=== PATIENT | female | born 1970 | race Caucasian/White ===

== ENCOUNTER 2016-07-11 11:31 | Outpatient (CLI) | payer BC | END 2016-07-11 11:52 | LOC: D.MAMMO 11:31 | DX: Z12.31 Encounter for screening mammogram for malignant neoplasm of breast (principal) ==

== ENCOUNTER → 2016-08-20 15:49 | Outpatient (CLI) | payer BC | END | disposition home or self-care (01) | LOC: D.MAMMO 08:30 | DX: R92.8 Other abnormal and inconclusive findings on diagnostic imaging of breast (principal) ==

== ENCOUNTER → 2018-04-22 23:39 | Outpatient (CLI) | payer BC | END | disposition home or self-care (01) | LOC: D.MAMMO 13:30 | PROVIDERS: ATTEND Emergency Medicine | DX: N64.4 Mastodynia (principal) ==

== ENCOUNTER 2020-08-17 15:10 | Outpatient (CLI) | payer BC | END 2020-08-17 23:59 | disposition home or self-care (01) | LOC: D.MAMMO 15:10 | PROVIDERS: ATTEND Emergency Medicine | DX: N63.12 Unspecified lump in the right breast, upper inner quadrant (principal) ==